=== PATIENT | male | born 1940 | race Caucasian/White ===

== ENCOUNTER → 2016-09-11 | Outpatient (CLI) | payer MEDICARE ==
[~2016-09-11] MED LIST: ASPIRIN PO; ASPIRIN81 M1 PO; ASPIRIN81 M2 PO; CENTRUM SILVER PO; DILTIAZEM ER120 MG PO; DULCOLAX5 MG PO; DYAZIDE 37.5/251 CAP PO; FLECAINIDE ACE100 MG PO; HYDROCODON-ACE1 EAC7 PO; METAMUCIL0.52 G PO; NO MEDICATIONS; NO MEDICATIONS PO; PANTOPRAZOLE SO40 MG PO; PROTONIX PO; SENNA S TABLET1 TAB PO; TRIAMTERENE-HC1 EAC1 PO; VITAMIN D PO
--- NOTE | ~2016-09-11 | MR32 ---
[facility] A Service of [facility] & [facility] RADIOLOGY TEXT RESULTS PATIENT: MARTA ELIZONDO LOCATION: [facility] : 36 UNIT #: [id number] AGE: [address]: Baudilio Jimenez MD SEX: M ORDER DR: [id number] [facility] [address] [place], [place] [address] [id number] O MR#: [id number] Acc #: [id number] NAME: MARTA ELIZONDO : 1940 SEX: M STUDY DATE/TIME: 09/11/2016 8:15 UNIT: [facility] ROOM: STUDY DESCRIPTION: MR Cervical Wo Contrast Attending Physician: Baudiilo Jimenez M.D. Referring Physician: Baudilio Jimenez M.D. Ordering Physician: Baudilio Jimenez M.D. Primary Care Physician: Baudilio Jimenez M.D. MRI CENTER REPORT This report is preliminary unless electronic signature is present. EXAM MRI of the cervical spine without contrast dated 09/11/2016. COMPARISON Plain film cervical spine dated 09/08/2016. HISTORY Neck stiffness and left arm weakness for 3 weeks. Right arm numbness. FINDINGS Multisequence multiplanar imaging of the cervical spine was obtained without contrast. There is loss of normal cervical curvature. Disc osteophyte complex are at multiple levels with mild anterior vertebral body height loss at some of the cervical levels. Cervical cord demonstrates expected course, caliber and signal. Pre and paravertebral soft tissues do not demonstrate any significant abnormality. C2-3: Disc osteophyte complex is slightly prominent in the left yfonihs-iv-qeikn subarticular region suggestive of broad-based protrusion. Right uncinate spur is also present. There are mild bilateral facet hypertrophic changes. Inferior kcvfgbpi-in-ccrvnx right neural foraminal narrowing is seen with relatively more patency in the superior aspect. Borderline size to mild canal stenosis. C3-4: Disc osteophyte complex with qvkawspv-dy-ehyevx canal stenosis. Mild bilateral facet hypertrophic changes are noted with bilateral uncinate spurs, severe inferior bilateral neural foraminal narrowing, particularly on the left. The neural foramina are relatively more patent superiorly. Cord is slightly flattened without cord signal change. C4-5: Disc osteophyte complex with likely superimposed rqedx-fl-hdrt subarticular broad-based disc small protrusion. Severe canal stenosis and cord flattening is noted with cord compression. Punctate tiny increased STS. [facility] A Service of [facility] & [facility] RADIOLOGY TEXT RESULTS PATIENT: MARTA ELIZONDO [facility] UNIT #: [id number] AGE: [address]: Baudilio Jimenez MD SEX: M ORDER DR: T2 signal is noted in the cord extending inferiorly to the level of C5 on the axial T2 sequences (series 6, image 16 to image 13). It is, however, not well correlated in the sagittal T2 sequence. Nonspecific. Severe inferior bilateral neural foraminal narrowing is noted with xgxz-ap-vhiitsta bilateral facet changes. Relatively worst level. C5-6: Disc osteophyte complex with bilateral uncinate spurs, severe bilateral neural foraminal narrowing, szwc-sg-tuefxncn bilateral facet hypertrophic changes, moderate canal stenosis. C6-7: Disc osteophyte complex with bilateral uncinate spurs and likely yulsdiqx-ob-aejsrq left, moderate right neural foraminal narrowing. There is also mild canal stenosis. C7-T1: Disc osteophyte complex with moderate left and mild right facet hypertrophic change. No canal stenosis or neural foraminal narrowing. IMPRESSION 1. Degenerative changes are noted at multiple levels, relatively worst at C4-5 with severe canal stenosis and cord compression. There is probably severe bilateral inferior neural foraminal narrowing also due to facet changes and uncinate spurs. 2. Punctate increased T2 signal is suspected within the cord at the level of C4-5 extending to C5 based on the axial T2 sequence. It is not well correlated in the sagittal T2 sequence. Though it could be artifactual, given the severe compressive changes at the level, early changes of compressive myelopathy cannot be completely excluded. Dictated by... Yefri Dempsey M.D. THIS IS AN ELECTRONICALLY VERIFIED REPORT Yefri Dempsey M.D. at 09/11/2016 3:42 PM CPR/pc TD: 09/11/2016 12:07 JOB #: [id number] MRI CENTER REPORT Page 1 of 1 COPY
== END | disposition home or self-care (01) ==
LOC: CMRI 07:42
DX: M47.22 Other spondylosis with radiculopathy, cervical region (principal); M48.02 Spinal stenosis, cervical region; G95.20 Unspecified cord compression
CPT/HCPCS: 72141

== ENCOUNTER → 2016-10-08 | Outpatient (CLI) | payer MEDICARE ==
--- NOTE | ~2016-10-08 | ST ---
Unit #: [id number] #: [id number] Patient: MARTA ELIZONDO [id number] [address] [address] [id number] O MR#: [id number] NAME: MARTA ELIZONDO : 1940 SEX: M STUDY DATE/TIME: 10/08/2016 UNIT: [facility] ROOM: STUDY DESCRIPTION: Lexiscan stress test Attending Physician: Hilary Michel M.D. Referring Physician: Hilary Michel M.D. Primary Care Physician: Baudilio Jimenez M.D. CARDIOLOGY REPORT PROCEDURE PERFORMED Lexiscan Cardiolite stress test. REPORT Baseline EKG - Sinus bradycardia, heart rate 53 beats per minute, intraventricular conduction delay, slow R wave progression, slightly prolonged Q-T. Lexiscan is a 4-minute test with Lexiscan being injected within the first minute, followed by Cardiolite. FINDINGS 1. EKG during the test showed some nonspecific ST-T wave abnormalities in inferolateral leads, some T wave inversion in lateral leads, which resolved at the end of the recovery phase. 2. The patient had no complaints of chest pain, palpitations or dizziness. Had increased shortness of breath and fatigue, which resolved in recovery phase. 3. Maximum heart rate response was 80 beats per minute with a maximum blood pressure response of 160/82 mmHg. 4. Cardiolite was injected after Lexiscan within the first minute of the test. Radionuclide tests pending. Please correlate with nuclear images. Dictated by... Kaleb CuadraPYasRYasNYas for Nilay Ryan/db TD: 10/08/2016 11:47 JOB #: [id number] CC: Boyd Gonzales M.D. Unit #: [id number] #: [id number] Patient: MARTA ELIZONDO CARDIOLOGY REPORT Page 1 of 1 X Anai Wick APRN CARDIOLOGY REPORT
--- NOTE | ~2016-10-08 | TH ---
Unit #: [id number] #: [id number] Patient: MARTA ELIZONDO [id number] [address] [address] [id number] O MR#: [id number] NAME: MARTA ELIZONDO : 1940 SEX: M STUDY DATE/TIME: 10/08/2016 UNIT: [facility] ROOM: STUDY DESCRIPTION: Attending Physician: Hilary Michel M.D. Referring Physician: Hilary Michel M.D. Primary Care Physician: Baudilio Jimenez M.D. CARDIOLOGY REPORT EXAM Lexiscan Cardiolite stress test, nuclear portion. PROCEDURE Using technetium 99m labeled Cardiolite, rest and stress SPECT images were obtained. Multiple SPECT images were obtained in various views including horizontal and vertical long axis and short axis views of the left ventricle. Images were obtained by gated SPECT method. The patient was administered 11.71 mCi of Cardiolite at rest. The patient was administered 34.7 mCi of Cardiolite after Lexiscan infusion was completed. On the stress images, there is a small area of mild decreased isotope activity inferiorly. The rest images also show a small area of mild decreased isotope activity inferiorly. Comparing rest and stress images, there is no obvious stress-induced ischemia noted. The small area of predominantly fixed defect seen inferiorly is most likely due to soft tissue artifact. The left ventricular ejection fraction is calculated to be 55%. There is no focal wall motion abnormality seen. CONCLUSION 1. No obvious stress-induced ischemia noted. 2. The left ventricular ejection fraction was calculated to be 55%. 3. There is no focal wall motion abnormality seen. 4. A small area of predominantly fixed defect seen inferiorly, is most likely due to soft tissue artifact. 5. Normal Lexiscan Cardiolite stress test. 6. Technically extremely limited study due to patient's body habitus. Clinical correlation is requested. Dictated by... Nilay Ryan TD: 10/09/2016 09:06 JOB #: [id number] Unit #: [id number] #: [id number] Patient: MARTA ELIZONDO CARDIOLOGY REPORT Page 1 of 1 X Hilary Michel MD <ELECTRONICALLY SIGNED> 10/11/16 [facility] CARDIOLOGY REPORT
== END | disposition home or self-care (01) ==
LOC: CNUC 08:25
DX: Z01.810 Encounter for preprocedural cardiovascular examination (principal); I10 Essential (primary) hypertension; R94.39 Abnormal result of other cardiovascular function study
CPT/HCPCS: 78452; 93017; A9500; J2785